=== PATIENT | female | born 1945 | race Caucasian/White ===

== ENCOUNTER → 2016-07-03 | Outpatient (REF) ==
[~2016-07-03] MED LIST: BACTRIM DS 8001 TAB PO; FERROUS SU325 MG/TAB PO; METHADONE H10 MG/TAB PO; MIRALAX PA17 GM/Dose PO; NAPROSYN 2250 MG/TAB PO; NEURONTIN300 MG/CAP PO; NORCO 325 MG-51 TAB PO; NORCO 325 MG-7.1 TAB PO; PRILOSEC 20MG20 MG PO; SYNTHROID0.05 MG/TA PO; ZESTRIL 20MG TA20 MG PO; ZOFRAN 4MG T4 MG/TAB PO
[2016-07-03 15:53] LABS: THYROID STIMULATING HORMONE 2.33 uIU/mL (0.465-4.680)
== END ==
LOC: ZLAB.WCH 14:45
PROVIDERS: Medical Genetics Clinical Genetics (M.D.)
DX: Z01.89 Encounter for other specified special examinations (principal)

== ENCOUNTER → 2016-07-15 | Outpatient (REF) | LOC: ZLAB.WCH 16:12 | DX: Z01.89 Encounter for other specified special examinations (principal) ==

== ENCOUNTER 2016-07-23 09:02 | Inpatient (IN) | payer MEDICARE, BC ==
[~2016-07-23] VITALS: Ht 170.2 cm; Wt 88.2 kg
[~2016-07-23 09:02] MED LIST changes: -FERROUS SU325 MG/TAB PO; -SYNTHROID0.05 MG/TA PO
[2016-07-30] VITALS (12 sets, daily range): BP systolic 93–152; BP diastolic 37–69; PULSE 57–119; TEMP 97.5–98
[2016-07-30] MEDS ORDERED: SYNTHROID0.05 MG/TA PO (10:08)
[2016-07-30] MEDS ORDERED: FERROUS SU325 MG/TAB PO (10:09)
[2016-07-30 10:57] LABS: BASO # 0.1 (0.0-0.2); BASO % 0.6 % (0.0-2.0); EOS # 0.1 (0.0-0.7); EOS % 1.6 % (0-4.0); GRAN # 5.6 (1.4-6.5); GRAN % 62.9 % (42.2-75.2); HEMOGLOBIN 11.9 g/dl (12.5-16.0); LYMPH # 2.6 (1.2-3.4); MEAN CELL VOLUME 82 fl (80.0-100.0); MEAN CORPUSCULAR HEMOGLOBIN 26 pg (27.0-31.0); MEAN CORPUSCULAR HGB CONC 31 g/dl (33.0-37.0); MEAN PLATELET VOLUME 10.6 fl (7.4-10.4); MONO # 0.5 (0.1-0.6); MONO % 5.6 % (1.7-9.3); PLATELET COUNT 243 K/mm3 (130-400); RED BLOOD COUNT 4.66 M/mm3 (4.10-5.30); REDCELL DISTRIBUTION WIDTH-CV 18.1 % (11.5-14.5); WHITE BLOOD COUNT 8.9 K/mm3 (4.8-10.8)
[2016-07-30 11:16] LABS: CALCIUM 9.8 mg/dL (8.4-10.2); CREATININE, serum 0.95 mg/dL (0.52-1.25); POTASSIUM 4.2 mmol/L (3.4-5.0)
[2016-07-30 23:40] LABS: HEMOGLOBIN 11.5 g/dl (12.5-16.0)
[2016-07-31] VITALS (7 sets, daily range): BP systolic 101–127; BP diastolic 35–64; PULSE 51–100; TEMP 98.2–99.1
[2016-07-31 07:39] LABS: HEMATOCRIT 34.7 % (37.0-47.0); HEMOGLOBIN 10.8 g/dl (12.5-16.0)
[2016-07-31 07:59] LABS: CALCIUM 8.7 mg/dL (8.4-10.2); CREATININE, serum 0.95 mg/dL (0.52-1.25); MAGNESIUM 1.8 mg/dL (1.6-2.3); PHOSPHOROUS 4.2 mg/dL (2.5-4.5); POTASSIUM 4.6 mmol/L (3.4-5.0)
[2016-08-01 02:07] VITALS: BP 122/51; PULSE 68; TEMP 98.5
[2016-08-01 05:32] VITALS: BP 148/68; PULSE 112
[2016-08-01 09:07] VITALS: BP 160/69; PULSE 95; TEMP 97.4
[2016-08-01 13:55] VITALS: BP 153/66; PULSE 76; TEMP 97.6
[2016-08-01 17:07] VITALS: BP 173/69; PULSE 91; TEMP 97.9
[2016-08-01 22:00] VITALS: BP 139/56; PULSE 86; TEMP 98
[2016-08-02] VITALS (9 sets, daily range): BP systolic 97–155; BP diastolic 39–54; PULSE 74–88; TEMP 98–98.4
[2016-08-02 09:06] LABS: MEAN CELL VOLUME 84 fl (80.0-100.0); MEAN CORPUSCULAR HGB CONC 31 g/dl (33.0-37.0); MEAN PLATELET VOLUME 10.6 fl (7.4-10.4); PLATELET COUNT 186 K/mm3 (130-400); RED BLOOD COUNT 3.56 M/mm3 (4.10-5.30); REDCELL DISTRIBUTION WIDTH-CV 17.7 % (11.5-14.5); WHITE BLOOD COUNT 8.2 K/mm3 (4.8-10.8)
[2016-08-02 09:10] LABS: HEMATOCRIT 29.8 % (37.0-47.0); HEMOGLOBIN 9.3 g/dl (12.5-16.0); MEAN CORPUSCULAR HEMOGLOBIN 26 pg (27.0-31.0)
[2016-08-02 09:21] LABS: CALCIUM 8.9 mg/dL (8.4-10.2); CREATININE, serum 0.84 mg/dL (0.52-1.25); MAGNESIUM 1.8 mg/dL (1.6-2.3); PHOSPHOROUS 1.8 mg/dL (2.5-4.5); POTASSIUM 3.5 mmol/L (3.4-5.0)
[2016-08-03] VITALS (8 sets, daily range): BP systolic 134–167; BP diastolic 42–60; PULSE 73–84; TEMP 97.6–98.8
[2016-08-04 05:49] VITALS: BP 151/68; PULSE 85; TEMP 97.9
[2016-08-04 10:03] VITALS: BP 172/59; PULSE 85; TEMP 97.5
[2016-08-04 13:17] VITALS: BP 168/54; PULSE 84; TEMP 98.3
== END 2016-08-04 14:10 | disposition home or self-care (01) | DRG 329 ==
LOC: INPTSU 07-30 09:26 → SURG 07-30 11:00
PROVIDERS: Surgery
PROC: 0DBW0ZZ Excision of Peritoneum, Open Approach (ICD-10-PCS; 2016-07-30)
PROC: 0DBN0ZZ Excision of Sigmoid Colon, Open Approach (ICD-10-PCS; principal; 2016-07-30 12:00)
PROC: 0WQF0ZZ Repair Abdominal Wall, Open Approach (ICD-10-PCS; 2016-07-30 12:00)
DX: Z43.3 Encounter for attention to colostomy (principal); K65.1 Peritoneal abscess; K43.2 Incisional hernia without obstruction or gangrene; B95.61 Methicillin susceptible Staphylococcus aureus infection as the cause of diseases classified elsewhere; E83.39 Other disorders of phosphorus metabolism
CPT/HCPCS: A4315; A9284; C1765; J0330; J0690; J1100; J1650; J2250; J2270; J2405; J2550; J2704; J3010; J7030; J7040; J7050; J7120

== ENCOUNTER → 2016-10-03 | Outpatient (REF) ==
[~2016-10-03] MED LIST changes: +FERROUS SU325 MG/TAB PO; +SYNTHROID0.05 MG/TA PO
[2016-10-03 15:59] LABS: THYROID STIMULATING HORMONE 3.03 uIU/mL (0.465-4.680)
== END ==
LOC: ZLAB.WCH 15:13
PROVIDERS: Internal Medicine
DX: Z01.89 Encounter for other specified special examinations (principal)

== ENCOUNTER 2016-10-09 07:42 | Outpatient (CLI) | payer MEDICARE, BC ==
[~2016-10-09] VITALS: Ht 170.2 cm; Wt 89.2 kg
[2016-10-09 08:11] VITALS: BP 173/67; PULSE 64
== END 2016-10-09 12:00 | disposition home or self-care (01) ==
LOC: COL.RAD 07:42
DX: Z53.9 Procedure and treatment not carried out, unspecified reason (principal)

== ENCOUNTER → 2016-12-26 | Outpatient (REF) ==
[2016-12-26 18:36] LABS: TOTAL IRON BINDING CAPACITY 355 ug/dL (265-497)
[2016-12-26 19:01] LABS: FERRITIN 19 ng/mL (11-264)
== END ==
LOC: ZLAB.WCH 18:03
PROVIDERS: Internal Medicine
DX: Z01.89 Encounter for other specified special examinations (principal)

== ENCOUNTER → 2017-07-07 | Outpatient (REF) ==
[2017-07-07 18:55] LABS: THYROID STIMULATING HORMONE 2.51 uIU/mL (0.465-4.680)
== END ==
LOC: ZLAB.WCH 18:05
PROVIDERS: Internal Medicine
DX: Z01.89 Encounter for other specified special examinations (principal)

== ENCOUNTER → 2017-08-27 | Outpatient (CLI) | payer MEDICARE, BC | LOC: ZCOL.LAB 16:07 | DX: Z01.812 Encounter for preprocedural laboratory examination (principal); Z86.14 Personal history of Methicillin resistant Staphylococcus aureus infection ==

== ENCOUNTER 2017-08-31 12:54 | Inpatient (IN) | payer MEDICARE, BC ==
[~2017-08-31] VITALS: Ht 165.1 cm; Wt 92.2 kg
[2017-10-13] VITALS (11 sets, daily range): BP systolic 97–160; BP diastolic 43–99; PULSE 71–90; TEMP 98–98.3
[2017-10-13] MEDS ORDERED: FOLIC ACID0.8 MG PO (02:24)
[2017-10-13] MEDS ORDERED: NATURAL IRON65 MG PO ×2 (02:25→05:37)
[2017-10-14] VITALS (7 sets, daily range): BP systolic 121–151; BP diastolic 44–56; PULSE 82–110; TEMP 97.5–100.8
[2017-10-14 06:48] LABS: HEMOGLOBIN 9.8 g/dl (12.5-16.0)
[2017-10-15] VITALS (7 sets, daily range): BP systolic 113–174; BP diastolic 41–87; PULSE 61–105; TEMP 98.5–99.2
[2017-10-15 06:35] LABS: HEMATOCRIT 28.8 % (37.0-47.0); HEMOGLOBIN 9.5 g/dl (12.5-16.0)
[2017-10-16 04:45] VITALS: BP 147/54; PULSE 85; TEMP 98.2
[2017-10-16 06:27] LABS: HEMATOCRIT 28.1 % (37.0-47.0); HEMOGLOBIN 9.3 g/dl (12.5-16.0)
[2017-10-16] MEDS ORDERED: ASPI325T6 PO (06:45)
[2017-10-16] MEDS ORDERED: CELEBREX 200MG200 MG PO (06:45)
[2017-10-16] MEDS ORDERED: ROXICODONE 55 MG/TAB PO (06:46)
[2017-10-16 07:41] VITALS: BP 142/55; PULSE 82; TEMP 98.3
== END 2017-10-16 10:00 | disposition home or self-care (01) | DRG 470 ==
LOC: JCC 10-13 05:12
PROVIDERS: Orthopaedic Surgery
PROC: 0SR90J9 Replacement of Right Hip Joint with Synthetic Substitute, Cemented, Open Approach (ICD-10-PCS; principal; 2017-10-13 07:30)
DX: M16.11 Unilateral primary osteoarthritis, right hip (principal); M54.5 Low back pain
CPT/HCPCS: A4314; A9284; C1713; C1776; J0690; J2250; J2270; J2704; J3010; J7120

== ENCOUNTER → 2017-09-29 | Outpatient (REF) | LOC: ZLAB.WCH 14:23 | DX: Z01.89 Encounter for other specified special examinations (principal) ==

== ENCOUNTER → 2017-10-02 | Outpatient (CLI) | payer MEDICARE, BC | LOC: COL.LAB 10:34 | DX: Z01.812 Encounter for preprocedural laboratory examination (principal) ==

== ENCOUNTER 2017-11-26 12:49 | Inpatient (IN) | payer MEDICARE, BC ==
[~2017-11-26] VITALS: Ht 167.6 cm; Wt 104.7 kg
[~2017-11-26 12:49] MED LIST changes: +ASPI325T6 PO; +CELEBREX 200MG200 MG PO; +FOLIC ACID0.8 MG PO; +NATURAL IRON65 MG PO; +ROXICODONE 55 MG/TAB PO
[2018-01-19] VITALS (11 sets, daily range): BP systolic 111–160; BP diastolic 39–65; PULSE 67–105; TEMP 98.3–99
[2018-01-19 09:37] LABS: COLLECTION METHOD CATHETER
[2018-01-19 09:43] LABS: PH 5 (5-8); SQUAMOUS EPITHELIAL None Seen /hpf; URINE APPEARANCE Clear; URINE BACTERIA None Seen /hpf; URINE BILIRUBIN Negative (NEGATIVE); URINE BLOOD Negative (NEGATIVE); URINE COLOR Yellow; URINE GLUCOSE Negative (NEGATIVE); URINE KETONE Negative (NEGATIVE); URINE LEUKOCYTE ESTERASE Negative (NEGATIVE); URINE NITRATE Negative (NEGATIVE); URINE PROTEIN(semi-quant) Negative (NEGATIVE); URINE RBC 0-2 /hpf; URINE UROBILINOGEN Negative (NEGATIVE); URINE WBC None Seen /hpf
[2018-01-20 00:10] VITALS: BP 124/33; PULSE 95; TEMP 98.8
[2018-01-20 04:00] VITALS: BP 137/78; PULSE 105; TEMP 97.9
[2018-01-20 06:28] LABS: HEMOGLOBIN 10.2 g/dl (12.5-16.0)
[2018-01-20 06:29] LABS: HEMATOCRIT 33.1 % (37.0-47.0)
[2018-01-20 07:17] VITALS: BP 128/55; PULSE 86; TEMP 98.2
[2018-01-20 11:25] VITALS: BP 143/55; PULSE 93; TEMP 98
[2018-01-20 16:13] VITALS: BP 135/49; PULSE 88; TEMP 97.7
[2018-01-20 20:07] VITALS: BP 146/54; PULSE 101; TEMP 98
[2018-01-21 00:46] VITALS: BP 135/75; PULSE 79; TEMP 98.2
[2018-01-21 04:14] VITALS: BP 129/56; PULSE 85; TEMP 98.5
[2018-01-21 07:29] VITALS: BP 129/41; PULSE 94; TEMP 98.3
[2018-01-21 07:34] LABS: HEMATOCRIT 27.7 % (37.0-47.0); HEMOGLOBIN 8.9 g/dl (12.5-16.0)
[2018-01-21 11:13] VITALS: BP 137/53; PULSE 92; TEMP 98.6
[2018-01-21 16:18] VITALS: BP 143/46; PULSE 85; TEMP 98.3
[2018-01-21 20:33] VITALS: BP 138/50; PULSE 106; PULSE 94; TEMP 98.3
[2018-01-22 04:04] VITALS: BP 129/68; PULSE 89; TEMP 97.9
[2018-01-22] MEDS ORDERED: ASPI325T6 PO (06:55)
[2018-01-22] MEDS ORDERED: NORCO 325 MG-51 TAB PO (06:56)
[2018-01-22] MEDS ORDERED: CELEBREX 200MG200 MG PO (06:56)
[2018-01-22] MEDS ORDERED: ROXICODONE 55 MG/TAB PO (06:57)
[2018-01-22 07:28] LABS: HEMATOCRIT 28.1 % (37.0-47.0); HEMOGLOBIN 8.7 g/dl (12.5-16.0)
[2018-01-22 07:31] VITALS: BP 144/45; PULSE 74; TEMP 97.4
[2018-01-22 11:57] VITALS: BP 139/37; PULSE 88; TEMP 98.2
== END 2018-01-22 13:05 | disposition home or self-care (01) | DRG 470 ==
LOC: JCC 01-19 07:34
PROVIDERS: Orthopaedic Surgery
PROC: 0SRB0J9 Replacement of Left Hip Joint with Synthetic Substitute, Cemented, Open Approach (ICD-10-PCS; principal; 2018-01-19 09:30)
DX: M16.12 Unilateral primary osteoarthritis, left hip (principal); I10 Essential (primary) hypertension
CPT/HCPCS: A4314; A9284; C1713; C1776; J0690; J1170; J2250; J2270; J2405; J2704; J3010; J7120

== ENCOUNTER → 2018-01-07 | Outpatient (REF) ==
[2018-01-07 15:13] LABS: THYROID STIMULATING HORMONE 2.12 uIU/mL (0.465-4.680)
== END ==
LOC: ZLAB.WCH 14:25
PROVIDERS: Internal Medicine
DX: Z01.89 Encounter for other specified special examinations (principal)

== ENCOUNTER → 2018-01-12 | Outpatient (CLI) | payer MEDICARE, BC | LOC: COL.LAB 12:50 | DX: Z01.812 Encounter for preprocedural laboratory examination (principal) ==

== ENCOUNTER → 2018-02-02 | Outpatient (REF) ==
[2018-02-02 13:40] LABS: IRON,SERUM 22 ug/dL (35-150)
[2018-02-02 13:49] LABS: TOTAL IRON BINDING CAPACITY 363 ug/dL (265-497)
[2018-02-02 14:16] LABS: FERRITIN 76 ng/mL (11-264)
== END ==
LOC: ZLAB.WCH 13:04
PROVIDERS: Internal Medicine
DX: Z01.89 Encounter for other specified special examinations (principal)

== ENCOUNTER → 2018-02-05 | Outpatient (REF) | LOC: ZLAB.WCH 18:18 | DX: Z01.89 Encounter for other specified special examinations (principal) ==

== ENCOUNTER → 2018-03-09 | Outpatient (REF) ==
[2018-03-09 19:00] LABS: IRON,SERUM 40 ug/dL (35-150)
[2018-03-09 19:10] LABS: TOTAL IRON BINDING CAPACITY 332 ug/dL (265-497)
[2018-03-09 19:36] LABS: FERRITIN 36 ng/mL (11-264)
== END ==
LOC: ZLAB.WCH 18:24
PROVIDERS: Internal Medicine
DX: Z01.89 Encounter for other specified special examinations (principal)

== ENCOUNTER → 2018-09-30 | Outpatient (REF) ==
[2018-09-30 14:43] LABS: THYROID STIMULATING HORMONE 2.34 uIU/mL (0.465-4.680)
== END ==
LOC: ZLAB.WCH 13:54
PROVIDERS: Internal Medicine
DX: Z01.89 Encounter for other specified special examinations (principal)

== ENCOUNTER → 2018-12-17 | Outpatient (REF) | LOC: ZLAB.WCH 18:03 | DX: Z01.89 Encounter for other specified special examinations (principal) ==

== ENCOUNTER 2020-01-11 13:00 | Outpatient (RCR) | payer MEDICARE, BC | END 2020-02-14 14:50 | disposition home or self-care (01) | LOC: WSC 13:00 | DX: M48.061 Spinal stenosis, lumbar region without neurogenic claudication (principal); M54.16 Radiculopathy, lumbar region ==